=== PATIENT | male | born 1965 | race African-American/Black ===

== ENCOUNTER 2022-06-23 20:13 | Inpatient (IN) | payer OTHER ==
[2022-06-23 21:26] VITALS: BMI 21.5
[2022-06-23] MEDS ORDERED: P-EPHED 60MG/TRIPROLIDI 2.5MG TABLET PO PRN (21:54)
[2022-06-23] MEDS ORDERED: guaiFENesin 200 MG/10 ML 10 ML UNIT-DOSE CUPS PO PRN (21:54)
[2022-06-23] MEDS ORDERED: ACETAMINOPHEN 325 MG TABLET (FP) PO PRN (21:54)
[2022-06-23] MEDS ORDERED: BENZOCAINE/MENTHOL (CHLORASEPTIC ) LOZENGE MM PRN (21:54)
[2022-06-23] MEDS ORDERED: hydrOXYzine PAMOATE 25 MG CAPSULE (FP) PO PRN (21:54)
[2022-06-23] MEDS ORDERED: NICOTINE POLACRILEX 2 MG GUM BC PRN (21:54)
[2022-06-23] MEDS ORDERED: LOPERAMIDE HCL 2 MG CAPSULE PO PRN (21:54)
[2022-06-23] MEDS ORDERED: IBUPROFEN 400 MG TABLET (FP) PO PRN (21:54)
[2022-06-23] MEDS ORDERED: MAG HYDROX/AL HYDROX/SIMETH 30 ML UNIT-DOSE CUP PO PRN (21:54)
[2022-06-23] MEDS ORDERED: POLYETHYLENE GLYCOL (HEALTHYLAX) 3350 17 GM PACKET PO PRN (21:54)
[2022-06-23] MEDS ORDERED: MAGNESIUM HYDROX 2400MG/30ML ORAL SUSPENSION 30 ML CUP PO PRN (21:54)
[2022-06-23] MEDS ORDERED: LISINOPRIL 10 MG TABLET PO ONE (22:02)
[2022-06-23] MEDS ORDERED: LISINOPRIL 10 MG TABLET ONE (22:19)
[2022-06-23] MEDS: THIAMINE HCL 100 MG TABLET (FP) PO SCH (22:20)
[2022-06-23] MEDS: MELATONIN 5 MG TABLETS PO SCH (22:20)
[2022-06-24] MEDS: FAMOTIDINE 20 MG TABLET PO SCH ×2 (09:26→21:19)
[2022-06-24] MEDS: CARVEDILOL 6.25 MG TABLET (FP) PO SCH ×2 (09:26→21:19)
[2022-06-24] MEDS: PRENATAL VITAMINS W/ FOLIC ACID TABLET (FP) PO SCH (09:26)
[2022-06-24] MEDS: ASPIRIN COATED 81 MG TABLET.EC PO SCH (09:26)
[2022-06-24] MEDS: NICOTINE 14 MG/24 HOURS TOPICAL PATCH TD SCH (09:27)
[2022-06-24] MEDS ORDERED: LISINOPRIL 10 MG TABLET PO SCH (10:00)
[2022-06-24 11:49] LABS: HEMATOCRIT 46.6 % (35.4-49); HEMOGLOBIN 15.1 GM/dL (11.7-16.9); MCH 28.5 pg (25.7-33.7); MCHC 32.5 g/dl (32.0-35.9); MEAN CELL VOLUME 87.7 fl (80-96); MEAN PLT VOLUME 7.7 fl (7.5-11.1); PLATELET COUNT 234 10^3/uL (134-434); RBC 5.31 M/mm3 (4.00-5.60); RDW 14.3 % (11.9-15.9); WHITE BLOOD COUNT 3.8 K/mm3 (4.0-10.0)
[2022-06-24 12:28] LABS: ALBUMIN 2.9 g/dl (3.4-5.0); CALCIUM 8.9 mg/dL (8.5-10.1)
[2022-06-24 12:33] LABS: BILIRUBIN,TOTAL 0.4 mg/dL (0.2-1); BLOOD UREA NITROGEN 16.1 mg/dL (7-18)
[2022-06-24 12:35] LABS: TOT PROT 7.1 g/dl (6.4-8.2)
[2022-06-24 13:04] LABS: SYPHILIS W/ RPR CONF REACTIVE (NONREACTIVE)
[2022-06-24 13:22] LABS: PH,URINE 6.5 (5.0-8.0); URINE APPEARANCE CLEAR; URINE BILIRUBIN NEGATIVE (NEGATIVE); URINE COLOR YELLOW; URINE GLUCOSE (UA) NEGATIVE (NEGATIVE); URINE KETONE NEGATIVE (NEGATIVE); URINE LEUK ESTERASE NEGATIVE (NEGATIVE); URINE NITRITE NEGATIVE (NEGATIVE); URINE PROTEIN TRACE (NEGATIVE)
[2022-06-24] MEDS ORDERED: cloNIDine HCL 0.1 MG TABLET PO ONE (13:32)
[2022-06-24] MEDS: THIAMINE HCL 100 MG TABLET (FP) PO SCH (21:20)
[2022-06-24] MEDS: MELATONIN 5 MG TABLETS PO SCH (21:20)
[2022-06-24] MEDS ORDERED: ATORVASTATIN CA 40 MG TABLET (FP) ONE (21:20)
[2022-06-24] MEDS: LISINOPRIL 10 MG TABLET PO SCH (21:21)
[2022-06-24] MEDS ORDERED: ATORVASTATIN CA 80 MG TABLET (FP) PO SCH (22:00)
[2022-06-25] MEDS: PRENATAL VITAMINS W/ FOLIC ACID TABLET (FP) PO SCH (09:58)
[2022-06-25] MEDS: FAMOTIDINE 20 MG TABLET PO SCH (09:59)
[2022-06-25] MEDS: CARVEDILOL 6.25 MG TABLET (FP) PO SCH (09:59)
[2022-06-25] MEDS: ASPIRIN COATED 81 MG TABLET.EC PO SCH (09:59)
[2022-06-25] MEDS: LISINOPRIL 10 MG TABLET PO SCH (09:59)
[2022-06-25] MEDS: NICOTINE 14 MG/24 HOURS TOPICAL PATCH TD SCH (09:59)
[2022-06-25 10:41] VITALS: BP 135/87; PULSE 88; RESP 18; TEMP 98.6
== END 2022-06-25 10:18 | disposition left against medical advice (07) | DRG 770 ==
LOC: YASAS 20:13 → EDBD 22:28 → Y3W 22:28
PROVIDERS: ADMIT Allergy & Immunology; ATTEND Psychiatry & Neurology Pain Medicine
PROC: HZ42ZZZ Group Counseling for Substance Abuse Treatment, Cognitive-Behavioral (ICD-10-PCS; principal; 2022-06-23)
DX: F14.20 Cocaine dependence, uncomplicated (principal); F12.20 Cannabis dependence, uncomplicated; F17.210 Nicotine dependence, cigarettes, uncomplicated; F31.9 Bipolar disorder, unspecified; F19.24 Other psychoactive substance dependence with psychoactive substance-induced mood disorder; F39 Unspecified mood [affective] disorder; E78.5 Hyperlipidemia, unspecified; I10 Essential (primary) hypertension; R63.8 Other symptoms and signs concerning food and fluid intake; R23.4 Changes in skin texture; Z91.14 Patient's other noncompliance with medication regimen
CPT/HCPCS: 36415; 80053; 81003; 82962; 85027; 86593; 86780; 86803; 93005; 93010